=== PATIENT | female | born 1935 | race Caucasian/White ===

== ENCOUNTER 2017-11-24 09:58 | Inpatient (IN) | payer MEDICARE, BC ==
[~2017-11-24] VITALS: Ht 149.9 cm; Wt 51.0 kg
[~2017-11-24 09:58] MED LIST: ALPR.25 PO; ASPI1TAB69 PO; PRED5TAB PO; SIMV20TA PO
[2017-11-24 10:05] VITALS: BP 137/75; PULSE 115; RESP 21; TEMP 98.9; O2SAT 100
[2017-11-24] MEDS ORDERED: SODIUM CHLORIDE 0.9% FLUSH 10 ML FLUSH IVF PRN (10:15)
[2017-11-24] MEDS ORDERED: ASPI-516 CHEW (10:16)
[2017-11-24 10:26] LABS: AUTOMATED NEUTROPHIL # 10.5 TH/MM3 (1.8-7.7); BASOPHIL % 0.3 % (0.0-2.0); HEMATOCRIT 34.2 % (35.0-46.0); HEMOGLOBIN 11.4 GM/DL (11.6-15.3); LYMPH % 4.4 % (9.0-44.0); LYMPHOCYTE # 0.5 TH/MM3 (1.0-4.8); MEAN CELL VOLUME 102.8 FL (80.0-100.0); MEAN CORPUSCULAR HEMOGLOBIN 34.2 PG (27.0-34.0); MEAN CORPUSCULAR HGB CONC 33.2 % (32.0-36.0); MEAN PLATELET VOLUME 7.3 FL (7.0-11.0); MONO % 10.5 % (0.0-8.0); MONOCYTE # 1.3 TH/MM3 (0-0.9); NEUT % 84.8 % (16.0-70.0); PLATELET COUNT 296 TH/MM3 (150-450); RED BLOOD COUNT 3.33 MIL/MM3 (4.00-5.30); RED CELL DISTRIBUTION WIDTH 13.6 % (11.6-17.2); WHITE BLOOD COUNT 12.4 TH/MM3 (4.0-11.0)
[2017-11-24 10:38] LABS: PROTHROMBIN TIME - PATIENT 9.9 SEC (9.8-11.6)
[2017-11-24 10:45] LABS: ALBUMIN 3.8 GM/DL (3.4-5.0); ALT (GPT) 26 U/L (10-53); AST (GOT) 33 U/L (15-37); BICARBONATE 23.6 MEQ/L (21.0-32.0); BLOOD UREA NITROGEN 13 MG/DL (7-18); CALCIUM 8.8 MG/DL (8.5-10.1); CHLORIDE 99 MEQ/L (98-107); CREATININE 0.62 MG/DL (0.50-1.00); GLOMERULAR FILTRATION RATE 92 ML/MIN (>89); GLUCOSE,RANDOM 129 MG/DL (74-106); SODIUM (NA) 133 MEQ/L (136-145)
[2017-11-24 10:46] LABS: BACTERIA, URINE OCC /hpf; BILIRUBIN, URINE NEG (NEG); BLOOD, URINE NEG (NEG); GLUCOSE,URINE NEG (NEG); HYALINE CAST, URINE 1 /lpf (RARE); KETONE, URINE TRACE mg/dL (NEG); MUCUS URINE FEW /lpf (OCC); NITRITE,URINE NEG (NEG); SQUAMOUS EPITHELIAL CELL URINE <1 /hpf (0-5); URINE COLOR YELLOW (YELLW/STRAW); URINE LEUKOCYTE ESTERASE LARGE (NEG)
[2017-11-24 10:47] LABS: ALKALINE PHOSPHATASE 70 U/L (45-117); TOTAL BILIRUBIN ADULT 0.9 MG/DL (0.2-1.0); TOTAL PROTEIN 6.5 GM/DL (6.4-8.2)
[2017-11-24 11:00] VITALS: BP 120/73; PULSE 97
[2017-11-24] MEDS ORDERED: cefTRIAXone INJ 1,000 MG in SODIUM CHLORIDE 0.9% INJ 100 ML IV ONE (11:15)
--- NOTE | 2017-11-24 11:35 | PD ---
HPI Chief Complaint: Hip Injury Time Seen by Provider: 10:06 Travel History International Travel<30 days: No Contact w/Intl Traveler<30days: No Traveled to known affect area: No History of Present Illness HPI 82 y/o female presents after she states she slipped and fell on water when she was trying to load ice cube trays and fell. She states she did not hit her head. She states she did not black out. She states she's been having pain to her left hip area ever since and has not been able to walk around. She is been on the ground since last night at about 9:30 when this occurred. She states she fell asleep intermittently and this morning when it still hurt she elected to call her neighbor who helped her get evaluated. Pain is worse with movement. She denies other modifying factors. Quality pain is sharp. She was given 6 mg of morphine prior to arrival. Follow was from standing. Duration is a little over 12 hours ago. She denies any other concurrent complaints. PFSH Past Medical History Anxiety: Yes High Cholesterol: Yes Diminished Hearing: No Immunizations Current: No Tetanus Vaccination: Never Vaccinated Influenza Vaccination: No ?: Not Menopausal: Yes Past Surgical History Appendectomy: Yes Tonsillectomy: Yes Social History Alcohol Use: Yes (EVERYDAY) Tobacco Use: Yes (OCC) Substance Use: No (DENIES ) Allergies-Medications (Allergen,Severity, Reaction): Coded Allergies: No Known Allergies (Unverified Allergy, Unknown, 11/24/17) Reported Meds & Prescriptions Reported Meds & Active Scripts Active Reported Aspirin 81 Mg Chew 81 Mg CHEW DAILY Xanax (Alprazolam) 0.25 Mg Tab 0.25 Mg PO Q6H PRN Simvastatin 20 Mg Tab 20 Mg PO DAILY Review of Systems Except as stated in HPI: all other systems reviewed are Neg Physical Exam Narrative General: 82 y/o patient in no apparent distress Skin: trauma noted to left hip with swelling Eyes: Pupils equal ENT: no septal hematoma NECK: no pain with palpation and range of motion in midline Cardiovascular: Regular rate and rhythm Respiratory: Normal respiratory effort noted, clear to auscultation bilaterally Abdomen: soft, nontender, nondistended Extremities: Pain with palpation of left hip, no lacerations over, neurovascularly intact, no pain with palpation of other joints Neuro: awake, alert, sensation and motor grossly intact except for what was limited to left leg given probable hip fracture Data Data Last Documented VS Vital Signs Date Time Temp Pulse Resp B/P (MAP) Pulse Ox O2 Delivery O2 Flow Rate FiO2 11/24/17 11:54 100 16 104/63 (77) 100 Nasal Cannula 2.00 11/24/17 10:05 98.9 Orders Orders Electrocardiogram (11/24/17 10:10) Complete Blood Count With Diff (11/24/17 10:10) Comprehensive Metabolic Panel (11/24/17 10:10) Prothrombin Time / Inr (Pt) (11/24/17 10:10) Act Partial Throm Time (Ptt) (11/24/17 10:10) Urinalysis - C+S If Indicated (11/24/17 10:10) Type And Screen (11/24/17 10:10) Chest, Single Ap (11/24/17 10:10) Femur (Ap & Lat/2vws) (11/24/17 10:10) Pelvis, Ap Only (Routine) (11/24/17 10:10) Iv Access Insert/Monitor (11/24/17 10:10) Urinary Catheter Insert/Apply (11/24/17 10:10) Oximetry (11/24/17 10:10) Ecg Monitoring (11/24/17 10:10) Sodium Chloride 0.9% Flush (Ns Flush) (11/24/17 10:15) Diet Npo (11/24/17 Lunch) Urine Culture (11/24/17 10:25) Blood Culture (11/24/17 11:05) Ceftriaxone Inj (Rocephin Inj) (11/24/17 11:15) Creatine Kinase (Cpk) (11/24/17 11:43) Ct Brain W/O Iv Contrast(Rout) (11/24/17 ) Admit To Inpatient (11/24/17 ) Vital Signs (Adult) Q4H (11/24/17 11:54) Activity Bed Rest With Brp (11/24/17 11:54) Sodium Chloride 0.9% Flush (Ns Flush) (11/24/17 12:00) Ondansetron Inj (Zofran Inj) (11/24/17 12:00) Comprehensive Metabolic Panel (11/25/17 06:00) Complete Blood Count With Diff (11/25/17 06:00) Scd Bilateral/Knee High JOE.BID (11/24/17 11:54) Acetaminophen (Tylenol) (11/24/17 12:00) Acetamin-Hydrocod 325-5 Mg (Kramer 5-325 (11/24/17 12:00) Acetamin-Hydrocod 325-7.5 Mg (Kramer 7.5 (11/24/17 12:00) Morphine Inj (Morphine Inj) (11/24/17 12:00) Naloxone Inj (Narcan Inj) (11/24/17 12:00) Docusate Sodium-Senna (Audrey-Colace) (11/24/17 21:00) Magnesium Hydroxide Liq (Milk Of Magnesi (11/24/17 12:00) Sennosides (Senokot) (11/24/17 12:00) Bisacodyl Supp (Dulcolax Supp) (11/24/17 12:00) Lactulose Liq (Lactulose Liq) (11/24/17 12:00) Inpatient Certification (11/24/17 ) Admit Order (Ed Use Only) (11/24/17 12:22) Labs Laboratory Tests Test 11/24/17 10:15 11/24/17 10:25 White Blood Count 12.4 TH/MM3 Red Blood Count 3.33 MIL/MM3 Hemoglobin 11.4 GM/DL Hematocrit 34.2 % Mean Corpuscular Volume 102.8 FL Mean Corpuscular Hemoglobin 34.2 PG Mean Corpuscular Hemoglobin Concent 33.2 % Red Cell Distribution Width 13.6 % Platelet Count 296 TH/MM3 Mean Platelet Volume 7.3 FL Neutrophils (%) (Auto) 84.8 % Lymphocytes (%) (Auto) 4.4 % Monocytes (%) (Auto) 10.5 % Eosinophils (%) (Auto) 0.0 % Basophils (%) (Auto) 0.3 % Neutrophils # (Auto) 10.5 TH/MM3 Lymphocytes # (Auto) 0.5 TH/MM3 Monocytes # (Auto) 1.3 TH/MM3 Eosinophils # (Auto) 0.0 TH/MM3 Basophils # (Auto) 0.0 TH/MM3 CBC Comment DIFF FINAL Differential Comment Prothrombin Time 9.9 SEC Prothromb Time International Ratio 1.0 RATIO Activated Partial Thromboplast Time 22.0 SEC Blood Urea Nitrogen 13 MG/DL Creatinine 0.62 MG/DL Random Glucose 129 MG/DL Total Protein 6.5 GM/DL Albumin 3.8 GM/DL Calcium Level 8.8 MG/DL Alkaline Phosphatase 70 U/L Aspartate Amino Transf (AST/SGOT) 33 U/L Alanine Aminotransferase (ALT/SGPT) 26 U/L Total Bilirubin 0.9 MG/DL Sodium Level 133 MEQ/L Potassium Level 4.3 MEQ/L Chloride Level 99 MEQ/L Carbon Dioxide Level 23.6 MEQ/L Anion Gap 10 MEQ/L Estimat Glomerular Filtration Rate 92 ML/MIN Urine Color YELLOW Urine Turbidity HAZY Urine pH 6.0 Urine Specific [place] 1.018 Urine Protein 30 mg/dL Urine Glucose (UA) NEG mg/dL Urine Ketones TRACE mg/dL Urine Occult Blood NEG Urine Nitrite NEG Urine Bilirubin NEG Urine Urobilinogen LESS THAN 2.0 MG/DL Urine Leukocyte Esterase LARGE Urine RBC LESS THAN 1 /hpf Urine WBC 6 /hpf Urine Squamous Epithelial Cells <1 /hpf Urine Bacteria OCC /hpf Urine Hyaline Casts 1 /lpf Urine Mucus FEW /lpf Microscopic Urinalysis Comment CATH-CULTURE IND MDM Medical Decision Making Medical Screen Exam Complete: Yes Emergency Medical Condition: Yes Medical Record Reviewed: Yes (past history confirmed) Interpretation(s) CBC & BMP Diagram 11/24/17 10:15 Total Protein 6.5, Albumin 3.8, Calcium Level 8.8, Alkaline Phosphatase 70, Aspartate Amino Transf (AST/SGOT) 33, Alanine Aminotransferase (ALT/SGPT) 26, Total Bilirubin 0.9 Last 24 hours Impressions Pelvis X-Ray 11/24/17 1010 Signed Impressions: Service Date/Time: October 10:51 - CONCLUSION: There is a displaced oblique fracture through the trochanteric region of the proximal left femur. Neo Goldsmith MD Femur X-Ray 11/24/17 1010 Signed Impressions: Service Date/Time: October 10:54 - CONCLUSION: Displaced fracture through the trochanteric region of the left femur. Neo Goldsmith MD Chest X-Ray 11/24/17 1010 Signed Impressions: Service Date/Time: October 11:15 - CONCLUSION: No acute disease. Neo Goldsmith MD Head CT 11/24/17 0000 Signed Impressions: Service Date/Time: October 12:05 - CONCLUSION: 1. No acute intracranial hemorrhage. 2. Bilateral cortical atrophy. Neo Goldsmith MD Differential Diagnosis Fracture, dislocation, strain Narrative Course Will check blood work, trauma imaging and monitor. ua with uti, given rocephin, x-ray reviewed and will discuss with orthopedic physician patient updated, agrees to admit and ortho consult Physician Communication Physician Communication dr [email or web address] agrees to admit dr cruz states to place consult under dr miles Diagnosis Primary Impression: Hip fracture Qualified Codes: S72.002A - Fracture of unspecified part of neck of left femur , initial encounter for closed fracture Additional Impression: UTI (urinary tract infection) Admitting Information Admitting Physician Requests: Admit Renea Guzman MD Nov 24, 2017 11:35
[2017-11-24 11:54] VITALS: BP 104/63; PULSE 100; RESP 16; O2SAT 100
--- NOTE | 2017-11-24 11:55 | RADRPT ---
EXAM DATE/TIME: 11/24/2017 10:51 [facility] COMPARISON: No previous studies available for comparison. INDICATIONS : Left hip pain after falling last night. MEDICAL HISTORY : Smoker. SURGICAL HISTORY : None. ENCOUNTER: Initial ACUITY: 2 days PAIN SCORE: 10/10 LOCATION: Left hip into the groin. FINDINGS: There is a displaced fracture through the trochanteric region of the proximal left femur. The femoral head remains within the acetabulum. The bony structures of the pelvis are grossly intact. There is a lignment of the right hip joint. CONCLUSION: There is a displaced oblique fracture through the trochanteric region of the proximal left femur. Neo Goldsmith MD on November 24, 2017 at 11:53 Board Certified Radiologist. This report was verified electronically.
--- NOTE | 2017-11-24 11:55 | RADRPT ---
EXAM DATE/TIME: 11/24/2017 11:15 [facility] COMPARISON: No previous studies available for comparison. INDICATIONS : Evaluate for pneumonia, pneumothorax, or communicable disease. Pre-op for left femur fracture. MEDICAL HISTORY : Smoker. SURGICAL HISTORY : None. ENCOUNTER: Initial ACUITY: 1 day PAIN SCORE: 0/10 LOCATION: Bilateral chest FINDINGS: A single view of the chest demonstrates the lungs to be symmetrically aerated without evidence of mas s, infiltrate or effusion. The cardiomediastinal contours are unremarkable. Osseous structures are intact. There is scoliosis with curvature of the thoracic spine to the right. There is diffuse degene rative changes. CONCLUSION: No acute disease. Neo Goldsmith MD on November 24, 2017 at 11:53 Board Certified Radiologist. This report was verified electronically.
--- NOTE | 2017-11-24 11:56 | RADRPT ---
EXAM DATE/TIME: 11/24/2017 10:54 [facility] COMPARISON: No previous studies available for comparison. INDICATIONS : Left hip pain after falling last night. MEDICAL HISTORY : Smoker. SURGICAL HISTORY : None. ENCOUNTER: Initial ACUITY: 2 days PAIN SCORE: 10/10 LOCATION: Left hip into groin. FINDINGS: There is a displaced fracture through the trochanteric region of the left femur. The femoral head rem ains within the acetabulum. CONCLUSION: Displaced fracture through the trochanteric region of the left femur. Neo Goldsmith MD on November 24, 2017 at 11:54 Board Certified Radiologist. This report was verified electronically.
[2017-11-24] MEDS ORDERED: PHENYLEPH/NS 1000 MCG/10 ML SYR IV ONE (12:00)
[2017-11-24] MEDS ORDERED: NALOXONE HCL 0.4 MG/ML AMP IV PUSH PRN (12:00)
[2017-11-24] MEDS ORDERED: ACETAMINOPHEN 325 MG TAB PO PRN (12:00)
[2017-11-24] MEDS ORDERED: ONDANSETRON HCL 4 MG/2 ML VIAL IV ONE (12:00)
[2017-11-24] MEDS ORDERED: LIDOCAINE HCL 1% PF 5 ML SYRINGE OTHER ONE (12:00)
[2017-11-24] MEDS ORDERED: SODIUM CHLORIDE 0.9% FLUSH 10 ML FLUSH IV FLUSH PRN ×2 (12:00→20:15)
[2017-11-24] MEDS ORDERED: LACTATED RINGER'S 1000 ML INJ 1,000 ML IV ONE (12:00)
[2017-11-24] MEDS ORDERED: ONDANSETRON HCL 4 MG/2 ML VIAL IVP PRN (12:00)
[2017-11-24] MEDS ORDERED: PROPOFOL 200 MG/20 ML AMP IV ONE (12:00)
[2017-11-24] MEDS ORDERED: ACETAMINOPHEN/HYDROcodone 325 MG/7.5 MG TAB PO PRN (12:00)
[2017-11-24] MEDS ORDERED: DEXAMETHASONE SOD PHOS 4 MG/ML VIAL IV ONE (12:00)
[2017-11-24] MEDS ORDERED: ACETAMINOPHEN/HYDROcodone 325 MG/5 MG TAB PO PRN (12:00)
[2017-11-24] MEDS ORDERED: MORPHINE SULFATE 2 MG/ML INJ IV PUSH PRN (12:00)
[2017-11-24] MEDS ORDERED: MAGNESIUM HYDROXIDE SUSP 30 ML CUP PO PRN ×2 (12:00→20:15)
[2017-11-24] MEDS ORDERED: SENNOSIDES 8.6 MG TAB PO PRN ×2 (12:00→20:15)
[2017-11-24] MEDS ORDERED: BISACODYL 10 MG SUPP RECTAL PRN ×2 (12:00→20:15)
[2017-11-24] MEDS ORDERED: LACTULOSE SYRUP 20 GM/30 ML CUP PO PRN ×2 (12:00→20:15)
--- NOTE | 2017-11-24 12:20 | RADRPT ---
EXAM DATE/TIME: 11/24/2017 12:05 [facility] COMPARISON: No previous studies available for comparison. INDICATIONS : Fall last night RADIATION DOSE: 26.35 CTDIvol (mGy) MEDICAL HISTORY : Hypertension. SURGICAL HISTORY : Appendectomy. ENCOUNTER: Initial ACUITY: 1 day PAIN SCALE: 2/10 LOCATION: cranial TECHNIQUE: Multiple contiguous axial images were obtained of the head. Using automated exposure control and adj ustment of the mA and/or kV according to patient size, radiation dose was kept as low as reasonably a chievable to obtain optimal diagnostic quality images. DICOM format image data is available electro nically for review and comparison. FINDINGS: CEREBRUM: The ventricles are normal for age. There is bilateral cortical atrophy. No evidence of midline shift , mass lesion, hemorrhage or acute infarction. No extra-axial fluid collections are seen. POSTERIOR FOSSA: The cerebellum and brainstem are intact. The 4th ventricle is midline. The cerebellopontine angle i s unremarkable. EXTRACRANIAL: The visualized portion of the orbits is intact. SKULL: The calvaria is intact. No evidence of skull fracture. CONCLUSION: 1. No acute intracranial hemorrhage. 2. Bilateral cortical atrophy. Neo Goldsmith MD on November 24, 2017 at 12:17 Board Certified Radiologist. This report was verified electronically.
--- NOTE | 2017-11-24 13:28 | HHI.HP ---
[facility] Service [facility] Primary Care Physician Cesar Orozco MD Admission Diagnosis hip fracture Diagnoses: Chief Complaint: Fall resulting in a hip fracture Travel History International Travel<30 Days: No Contact w/Intl Traveler <30 Da: No Traveled to Known Affected Are: No History of Present Illness This is a 82-year-old female past medical history of right macular degeneration , left vision loss, and hyperlipidemia who presented with a fall. 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 She stated that she spilled the water and slipped on it and flew in landed on the ground. She is unsure how she landed. She denies hitting her head and losing any consciousness. Patient stated that she remain on the floor and then had a push herself to the den where she slept up. She later realized that she would not be able to get up so she called her neighbor who called EMS. Patient stated that she does have a life alert but has never used it and stated that she is not planning on using it. She denies any chest pain, palpitation, SOB, lightheadedness or dizziness. She stated that she has never had these problems. Patient stated that she is very independent and would like to go home after surgery. Patient complains of left hip and thigh pain. Denied any loss of sensation. all other reviewed of system reviewed and negative. Past Family Social History Past Medical History Hyperlipidemia right macular degeneration Left vision loss Past Surgical History Appendectomy Reported Medications Aspirin 81 Mg Chew 81 Mg CHEW DAILY Xanax (Alprazolam) 0.25 Mg Tab 0.25 Mg PO Q6H PRN Simvastatin 20 Mg Tab 20 Mg PO DAILY Allergies: Coded Allergies: No Known Allergies (Unverified Allergy, Unknown, 11/24/17) Active Ordered Medications Current Medications Sodium Chloride (NS Flush) 2 ml UNSCH PRN IVF FLUSH AFTER USING IV ACCESS Last administered on 11/24/17t 11:31; Start 11/24/17 at 10:15 Ceftriaxone Sodium 1000 mg/ Sodium Chloride 100 ml @ 200 mls/hr ONCE ONCE IV Last administered on 11/24/17t 11:31; Start 11/24/17 at 11:15; Stop 11/24/17 at 11:44; Status DC Sodium Chloride (NS Flush) 2 ml UNSCH PRN IV FLUSH FLUSH AFTER USING IV ACCESS ; Start 11/24/17 at 12:00 Ondansetron HCl (Zofran Inj) 4 mg Q6H PRN IVP NAUSEA OR VOMITING; Start at 12:00 Acetaminophen (Tylenol) 650 mg Q6H PRN PO PAIN SCALE 1 TO 2; Start 11/24/17 at 12:00 Acetaminophen/ Hydrocodone Bitart ([place] 5-325 Mg) 1 tab Q4H PRN PO PAIN SCALE 3 TO 5; Start 11/24/17 at 12:00 Acetaminophen/ Hydrocodone Bitart ([place] 7.5-325 Mg) 1 tab Q4H PRN PO PAIN SCALE 6 TO 10; Start 11/24/17 at 12:00 Morphine Sulfate (Morphine Inj) 2 mg Q3H PRN IV PUSH BREAKTHROUGH PAIN; Start 11/24/17 at 12:00 Naloxone HCl (Narcan Inj) 0.4 mg UNSCH PRN IV PUSH SEE LABEL COMMENTS; Start 11/24/17 at 12:00 Senna/Docusate Sodium (Audrey-Colace) 1 tab BID PO ; Start 11/24/17 at 21:00 Magnesium Hydroxide (Milk Of Magnesia Liq) 30 ml Q12H PRN PO Mild constipation ; Start 11/24/17 at 12:00 Sennosides (Senokot) 17.2 mg Q12H PRN PO Moderate constipation; Start at 12:00 Bisacodyl (Dulcolax Supp) 10 mg DAILY PRN RECTAL SEVERE CONSITIPATION; Start 11/24/17 at 12:00 Lactulose (Lactulose Liq) 30 ml DAILY PRN PO SEVERE CONSITIPATION; Start 11/24 at 12:00 Family History Reviewed past family history and denied any. Social History Patient is independent and lives by herself. She smokes tobacco occasionally about one cigarette per week. Drinks 2-3 drinks of vodka a day. She denied getting any withdrawal symptoms from not drinking any vodka. Denies illicit drug use. Physical Exam Vital Signs Vital Signs Date Time Temp Pulse Resp B/P (MAP) Pulse Ox O2 Delivery O2 Flow Rate FiO2 11/24/17 11:54 100 16 104/63 (77) 100 Nasal Cannula 2.00 11/24/17 11:00 97 120/73 (89) Room Air 11/24/17 10:05 98.9 115 21 137/75 (95) 100 11/24/17 10:05 Room Air Physical Exam GENERAL: This is a well-nourished, well-developed patient, in no apparent distress. SKIN: No rashes, ecchymoses or lesions. Cool and dry. HEAD: Atraumatic. Normocephalic. No temporal or scalp tenderness. EYES: Pupils equal round and reactive. Extraocular motions intact. No scleral icterus. No injection or drainage. ENT: Nose without bleeding, purulent drainage or septal hematoma. Throat without erythema, tonsillar hypertrophy or exudate. Uvula midline. Airway patent. NECK: Trachea midline. No JVD or lymphadenopathy. Supple, nontender, no meningeal signs. CARDIOVASCULAR: Regular rate and rhythm without murmurs, gallops, or rubs. RESPIRATORY: Clear to auscultation. Breath sounds equal bilaterally. No wheezes , rales, or rhonchi. GASTROINTESTINAL: Abdomen soft, non-tender, nondistended. No hepato-splenomegaly , or palpable masses. No guarding. MUSCULOSKELETAL: Extremities without clubbing, cyanosis, or edema. Negative Homans sign bilaterally. +TTP of the left tight. unable to do ROM of left leg due to pain. NEUROLOGICAL: Awake and alert. Cranial nerves II through XII intact. Motor and sensory grossly within normal limits. Five out of 5 muscle strength in all muscle groups. Normal speech. Laboratory Laboratory Tests Test 11/24/17 10:15 11/24/17 10:25 White Blood Count 12.4 Red Blood Count 3.33 Hemoglobin 11.4 Hematocrit 34.2 Mean Corpuscular Volume 102.8 Mean Corpuscular Hemoglobin 34.2 Mean Corpuscular Hemoglobin Concent 33.2 Red Cell Distribution Width 13.6 Platelet Count 296 Mean Platelet Volume 7.3 Neutrophils (%) (Auto) 84.8 Lymphocytes (%) (Auto) 4.4 Monocytes (%) (Auto) 10.5 Eosinophils (%) (Auto) 0.0 Basophils (%) (Auto) 0.3 Neutrophils # (Auto) 10.5 Lymphocytes # (Auto) 0.5 Monocytes # (Auto) 1.3 Eosinophils # (Auto) 0.0 Basophils # (Auto) 0.0 CBC Comment DIFF FINAL Differential Comment Prothrombin Time 9.9 Prothromb Time International Ratio 1.0 Activated Partial Thromboplast Time 22.0 Blood Urea Nitrogen 13 Creatinine 0.62 Random Glucose 129 Total Protein 6.5 Albumin 3.8 Calcium Level 8.8 Alkaline Phosphatase 70 Aspartate Amino Transf (AST/SGOT) 33 Alanine Aminotransferase (ALT/SGPT) 26 Total Bilirubin 0.9 Sodium Level 133 Potassium Level 4.3 Chloride Level 99 Carbon Dioxide Level 23.6 Anion Gap 10 Estimat Glomerular Filtration Rate 92 Urine Color YELLOW Urine Turbidity HAZY Urine pH 6.0 Urine Specific [place] 1.018 Urine Protein 30 Urine Glucose (UA) NEG Urine Ketones TRACE Urine Occult Blood NEG Urine Nitrite NEG Urine Bilirubin NEG Urine Urobilinogen LESS THAN 2.0 Urine Leukocyte Esterase LARGE Urine RBC LESS THAN 1 Urine WBC 6 Urine Squamous Epithelial Cells <1 Urine Bacteria OCC Urine Hyaline Casts 1 Urine Mucus FEW Microscopic Urinalysis Comment CATH-CULTURE IND Date/Time Source Procedure Growth Status 11/24/17 11:30 Blood Peripheral Aerobic Blood Culture Pending Received 11/24/17 11:30 Blood Peripheral Anaerobic Blood Culture Pending Received 11/24/17 10:25 Urine Catheterized Urine Urine Culture Pending Received Result Diagram: 11/24/17 1015 11/24/17 1015 Imaging Last Impressions Pelvis X-Ray 11/24/17 1010 Signed Impressions: Service Date/Time: October 10:51 - CONCLUSION: There is a displaced oblique fracture through the trochanteric region of the proximal left femur. Neo Goldsmith MD Femur X-Ray 11/24/17 1010 Signed Impressions: Service Date/Time: October 10:54 - CONCLUSION: Displaced fracture through the trochanteric region of the left femur. Neo Goldsmith MD Chest X-Ray 11/24/17 1010 Signed Impressions: Service Date/Time: October 11:15 - CONCLUSION: No acute disease. Neo Goldsmith MD Head CT 11/24/17 0000 Signed Impressions: Service Date/Time: Thursday, November 24, 2017 12:05 - CONCLUSION: 1. No acute intracranial hemorrhage. 2. Bilateral cortical atrophy. MD Stephanie Rivas VTE Risk Assessment Caprini VTE Risk Assessment: Mod/High Risk (score >= 2) Caprini Risk Assessment Model Point Value = 1 Point Value = 2 Point Value = 3 Point Value = 5 Age 41-60 Minor surgery BMI > 25 kg/m2 Swollen legs Varicose veins or History of unexplained or recurrent spontaneous Oral contraceptives or hormone replacement Sepsis (< 1 month) Serious lung disease, including pneumonia (< 1 month) Abnormal pulmonary function Acute myocardial infarction Congestive heart failure (< 1 month) History of inflammatory bowel disease Medical patient at bed rest Age 61-74 Arthroscopic surgery Major open surgery (> 45 min) Laparoscopic surgery (> 45 min) Malignancy Confined to bed (> 72 hours) Immobilizing plaster cast Central venous access Age >= 75 History of VTE Family history of VTE Factor V Leiden Prothrombin [id number] Lupus anticoagulant Anticardiolipin antibodies Elevated serum homocysteine Heparin-induced thrombocytopenia Other congenital or acquired thrombophilia Stroke (< 1 month) Elective arthroplasty Hip, pelvis, or leg fracture Acute spinal cord injury (< 1 month) Prophylaxis Regimen Total Risk Factor Score Risk Level Prophylaxis Regimen 0-1 Low Early ambulation 2 Moderate Order ONE of the following: *Sequential Compression Device (SCD) *Heparin 5000 units SQ BID 3-4 Higher Order ONE of the following medications: *Heparin 5000 units SQ TID *Enoxaparin/Lovenox 40 mg SQ daily (WT < 150 kg, CrCl > 30 mL/min) *Enoxaparin/Lovenox 30 mg SQ daily (WT < 150 kg, CrCl > 10-29 mL/min) *Enoxaparin/Lovenox 30 mg SQ BID (WT < 150 kg, CrCl > 30 mL/min) AND/OR *Sequential Compression Device (SCD) 5 or more Highest Order ONE of the following medications: *Heparin 5000 units SQ TID (Preferred with Epidurals) *Enoxaparin/Lovenox 40 mg SQ daily (WT < 150 kg, CrCl > 30 mL/min) *Enoxaparin/Lovenox 30 mg SQ daily (WT < 150 kg, CrCl > 10-29 mL/min) *Enoxaparin/Lovenox 30 mg SQ BID (WT < 150 kg, CrCl > 30 mL/min) AND *Sequential Compression Device (SCD) Assessment and Plan Assessment and Plan This is an 82-year-old female who presented with a mechanical fall after slipping over water Displaced fracture through trochanter region of the left femur -Orthopedic consulted most likely patient will need surgical intervention. -Will start IV fluids and keep nothing by mouth pending recommendations from orthopedic surgeon. -Will also manage pain. Hyperlipidemia -Restart home medication. DVT prophylaxis -Will hold off on chemoprophylaxis pending possible surgery today. Code Status full Discussed Condition With Patient Physician Certification 2 Midnight Certification Type: Admission for Inpatient Services Order for Inpatient Services The services are ordered in accordance with Medicare regulations or non- Medicare payer requirements, as applicable. In the case of services not specified as inpatient-only, they are appropriately provided as inpatient services in accordance with the 2-midnight benchmark. Estimated LOS (days): 3 3 days is the estimated time the patient will need to remain in the hospital, assuming treatment plan goals are met and no additional complications. Post-Hospital Plan: SNF Shwetha Cheatham MD Nov 24, 2017 13:28
[2017-11-24 16:00] VITALS: BP 106/66; PULSE 109; RESP 16; TEMP 100.9; O2SAT 98
--- NOTE | 2017-11-24 17:21 | PD.CONS ---
cc: Carlos Weinstein Jr., MD HPI Service Orthopedic Surgeons Consult Requested By Primary Care Physician Cesar Orozco MD Admission Diagnosis hip fracture Diagnoses: Chief Complaint: left intertroch hip fracture History of Present Illness 82-year-old female past medical history of right macular degeneration, left vision loss, and hyperlipidemia who presented with a fall. s/p fall at home from slipping on water that was on the floor. c/o left hip pain and inability bear weight. X-ray taken the emergency department reveal displaced right IT fem fracture. Denies any head injuries. Denies loss of consciousness. Currently is alert, pain localized at left hip, patient's is 6 out of 10, exacerbated by any range of motion, WB, relieved at rest and with IV pain medicine, pain is sharp nonradiating, dull, not associated with any paresthesia and numbness to the extremity. She denies any chest pain, palpitation, SOB, lightheadedness or dizziness. She stated that she has never had these problems. Patient stated that she is very independent and would like to go home after surgery. ROS - General Review of Systems PFSH Past Family Social History Past Medical History Hyperlipidemia right macular degeneration Left vision loss Past Surgical History Appendectomy Reported Medications Aspirin 81 Mg Chew 81 Mg CHEW DAILY Xanax (Alprazolam) 0.25 Mg Tab 0.25 Mg PO Q6H PRN Simvastatin 20 Mg Tab 20 Mg PO DAILY Allergies: Coded Allergies: No Known Allergies (Unverified Allergy, Unknown, 11/24/17) Active Ordered Medications Current Medications Sodium Chloride (NS Flush) 2 ml UNSCH PRN IVF FLUSH AFTER USING IV ACCESS Last administered on 11/24/17 11:31; Start 11/24/17 at 10:15 Ceftriaxone Sodium 1000 mg/ Sodium Chloride 100 ml @ 200 mls/hr ONCE ONCE IV Last administered on 11/24/17 11:31; Start 11/24/17 at 11:15; Stop 11/24/17 at 11:44; Status DC Sodium Chloride (NS Flush) 2 ml UNSCH PRN IV FLUSH FLUSH AFTER USING IV ACCESS ; Start 11/24/17 at 12:00 Ondansetron HCl (Zofran Inj) 4 mg Q6H PRN IVP NAUSEA OR VOMITING; Start at 12:00 Acetaminophen (Tylenol) 650 mg Q6H PRN PO PAIN SCALE 1 TO 2; Start 11/24/17 at 12:00 Acetaminophen/ Hydrocodone Bitart ([place] 5-325 Mg) 1 tab Q4H PRN PO PAIN SCALE 3 TO 5; Start 11/24/17 at 12:00 Acetaminophen/ Hydrocodone Bitart ([place] 7.5-325 Mg) 1 tab Q4H PRN PO PAIN SCALE 6 TO 10; Start 11/24/17 at 12:00 Morphine Sulfate (Morphine Inj) 2 mg Q3H PRN IV PUSH BREAKTHROUGH PAIN; Start 11/24/17 at 12:00 Naloxone HCl (Narcan Inj) 0.4 mg UNSCH PRN IV PUSH SEE LABEL COMMENTS; Start 11/24/17 at 12:00 Senna/Docusate Sodium (Audrey-Colace) 1 tab BID PO ; Start 11/24/17 at 21:00 Magnesium Hydroxide (Milk Of Magnesia Liq) 30 ml Q12H PRN PO Mild constipation ; Start 11/24/17 at 12:00 Sennosides (Senokot) 17.2 mg Q12H PRN PO Moderate constipation; Start at 12:00 Bisacodyl (Dulcolax Supp) 10 mg DAILY PRN RECTAL SEVERE CONSITIPATION; Start 11/24/17 at 12:00 Lactulose (Lactulose Liq) 30 ml DAILY PRN PO SEVERE CONSITIPATION; Start 11/24 at 12:00 Family History Reviewed past family history and denied any. Social History Patient is independent and lives by herself. She smokes tobacco occasionally about one cigarette per week. Drinks 2-3 drinks of vodka a day. She denied getting any withdrawal symptoms from not drinking any vodka. Denies illicit drug use. Past Family Social History Past Medical History Hyperlipidemia right macular degeneration Left vision loss Past Surgical History Appendectomy Allergies: Coded Allergies: No Known Allergies (Unverified Allergy, Unknown, 11/24/17) Active Ordered Medications Current Medications Medications (Trade) Dose Ordered Sig/Mattie Route Start Time Stop Time Status Last Admin (NS Flush) 2 ml UNSCH PRN IVF 11/24/17 10:15 11/24/17 11:31 (NS Flush) 2 ml UNSCH PRN IV FLUSH 11/24/17 12:00 (Zofran Inj) 4 mg Q6H PRN IVP 11/24/17 12:00 (Tylenol) 650 mg Q6H PRN PO 11/24/17 12:00 ([place] 5-325 Mg) 1 tab Q4H PRN PO 11/24/17 12:00 ([place] 7.5-325 Mg) 1 tab Q4H PRN PO 11/24/17 12:00 (Morphine Inj) 2 mg Q3H PRN IV PUSH 11/24/17 12:00 (Narcan Inj) 0.4 mg UNSCH PRN IV PUSH 11/24/17 12:00 (Audrey-Colace) 1 tab BID PO 11/24/17 21:00 (Milk Of Magnesia Liq) 30 ml Q12H PRN PO 11/24/17 12:00 (Senokot) 17.2 mg Q12H PRN PO 11/24/17 12:00 (Dulcolax Supp) 10 mg DAILY PRN RECTAL 11/24/17 12:00 (Lactulose Liq) 30 ml DAILY PRN PO 11/24/17 12:00 Sodium Chloride 1,000 ml @ 84 mls/hr [id number] IV 11/24/17 13:30 Reported Meds & Active Scripts Active Reported Aspirin 81 Mg Chew 81 Mg CHEW DAILY Xanax (Alprazolam) 0.25 Mg Tab 0.25 Mg PO Q6H PRN Simvastatin 20 Mg Tab 20 Mg PO DAILY Family History Reviewed past family history and denied any. Social History Patient is independent and lives by herself. She smokes tobacco occasionally about one cigarette per week. Drinks 2-3 drinks of vodka a day. She denied getting any withdrawal symptoms from not drinking any vodka. Denies illicit drug use. Physical Exam Vital Signs Vital Signs Date Time Temp Pulse Resp B/P (MAP) Pulse Ox O2 Delivery O2 Flow Rate FiO2 11/24/17 11:54 100 16 104/63 (77) 100 Nasal Cannula 2.00 11/24/17 11:00 97 120/73 (89) Room Air 11/24/17 10:05 98.9 115 21 137/75 (95) 100 11/24/17 10:05 Room Air Physical Exam Alert awake and oriented x 3. No acute distress. Head: NC/AT Neck: No pain with any range of motion and neck. Trachea is midline. No tenderness to palpation along posterior cervical elements. Pulmonary: Normal respiratory effort. Bilateral upper extremity: No deformities Intact sensation distally in median, ulnar, and radial nerve. Intact motor in anterior interosseous, posterior interosseous, and ulnar nerve. 2+ radial artery pulses. Good cap refill. RIGHT lower extremity: No deformity, grossly Neurovascularly intact, +EHL/FHL. + PT/DP pulses. Supple compartments. Negative Homans sign. LEFT lower extremity: Shortened and externally rotated. Grossly neurovascularly intact. Grossly Neurovascularly intact, +EHL/FHL. + PT/DP pulses. Supple compartments. Negative Homans sign. Laboratory Laboratory Tests Test 11/24/17 10:15 11/24/17 10:25 White Blood Count 12.4 Red Blood Count 3.33 Hemoglobin 11.4 Hematocrit 34.2 Mean Corpuscular Volume 102.8 Mean Corpuscular Hemoglobin 34.2 Mean Corpuscular Hemoglobin Concent 33.2 Red Cell Distribution Width 13.6 Platelet Count 296 Mean Platelet Volume 7.3 Neutrophils (%) (Auto) 84.8 Lymphocytes (%) (Auto) 4.4 Monocytes (%) (Auto) 10.5 Eosinophils (%) (Auto) 0.0 Basophils (%) (Auto) 0.3 Neutrophils # (Auto) 10.5 Lymphocytes # (Auto) 0.5 Monocytes # (Auto) 1.3 Eosinophils # (Auto) 0.0 Basophils # (Auto) 0.0 CBC Comment DIFF FINAL Differential Comment Prothrombin Time 9.9 Prothromb Time International Ratio 1.0 Activated Partial Thromboplast Time 22.0 Blood Urea Nitrogen 13 Creatinine 0.62 Random Glucose 129 Total Protein 6.5 Albumin 3.8 Calcium Level 8.8 Alkaline Phosphatase 70 Aspartate Amino Transf (AST/SGOT) 33 Alanine Aminotransferase (ALT/SGPT) 26 Total Bilirubin 0.9 Sodium Level 133 Potassium Level 4.3 Chloride Level 99 Carbon Dioxide Level 23.6 Anion Gap 10 Estimat Glomerular Filtration Rate 92 Urine Color YELLOW Urine Turbidity HAZY Urine pH 6.0 Urine Specific [place] 1.018 Urine Protein 30 Urine Glucose (UA) NEG Urine Ketones TRACE Urine Occult Blood NEG Urine Nitrite NEG Urine Bilirubin NEG Urine Urobilinogen LESS THAN 2.0 Urine Leukocyte Esterase LARGE Urine RBC LESS THAN 1 Urine WBC 6 Urine Squamous Epithelial Cells <1 Urine Bacteria OCC Urine Hyaline Casts 1 Urine Mucus FEW Microscopic Urinalysis Comment CATH-CULTURE IND Date/Time Source Procedure Growth Status 11/24/17 11:30 Blood Peripheral Aerobic Blood Culture Pending Received 11/24/17 11:30 Blood Peripheral Anaerobic Blood Culture Pending Received 11/24/17 10:25 Urine Catheterized Urine Urine Culture Pending Received Result Diagram: 11/24/17 1015 11/24/17 1015 Imaging Last 72 hours Impressions Pelvis X-Ray 11/24/17 1010 Signed Impressions: Service Date/Time: October 10:51 - CONCLUSION: There is a displaced oblique fracture through the trochanteric region of the proximal left femur. Neo Goldsmith MD Femur X-Ray 11/24/17 1010 Signed Impressions: Service Date/Time: October 10:54 - CONCLUSION: Displaced fracture through the trochanteric region of the left femur. Neo Goldsmith MD Chest X-Ray 11/24/17 1010 Signed Impressions: Service Date/Time: October 11:15 - CONCLUSION: No acute disease. Neo Goldsmith MD Head CT 11/24/17 0000 Signed Impressions: Service Date/Time: October 12:05 - CONCLUSION: 1. No acute intracranial hemorrhage. 2. Bilateral cortical atrophy. Neo Goldsmith MD Assessment & Plan Assessment and Plan 82-year-old female past medical history of right macular degeneration, left vision loss, and hyperlipidemia who presented with a fall. s/p fall at home from slipping on water that was on the floor. c/o left hip pain and inability bear weight. X-ray taken the emergency department reveal displaced right IT fem fracture. Denies any head injuries. She is grossly neurovascularly intact. I recommend left hip intramedullary neha fixation. I discussed my treatment plans with the patient, as well as risks, benefits and alternatives of surgical Intervention versus nonoperative treatment. In this case, the risks of operative intervention involves bleeding, infection, nonunion, malunion, risks of damage to neurovascular structures, the risk of needing further surgery, posttraumatic arthritis and the risks involved with complication from anesthesia. We will proceed with the above procedure. The patient accepts these risks; understands and agrees with my recommendations. I also discussed my proposed postoperative care and follow-up plan. All questions were answered. Plan for OR []. Nothing by mouth []. Thanks for the consult, thanks for allowing me to participate in this patient's medical care. Carlos Weinstein Jr., MD Nov 24, 2017 17:21
[2017-11-24] MEDS: SODIUM CHLOR 0.9% 1000 ML INJ 1,000 ML IV SCH ×2 (17:26→22:30)
[2017-11-24] MEDS ORDERED: ACETAMINOPHEN 1000 MG/100 ML 100 ML IV ONE (18:56)
[2017-11-24] MEDS ORDERED: ceFAZolin INJ 1,000 MG VIAL ONE (19:41)
[2017-11-24] MEDS ORDERED: VANCOMYCIN HCL 1000 MG VIAL ONE (19:41)
[2017-11-24] MEDS ORDERED: PERC5TAB12 PO (20:04)
[2017-11-24] MEDS ORDERED: XARE10TA PO (20:05)
[2017-11-24] MEDS ORDERED: oxyCODONE/ACETAMINOPHEN 5 MG/325 MG TAB PO PRN (20:15)
[2017-11-24] MEDS ORDERED: Post-op Orders (for Pharmacy) XX ONE (20:15)
[2017-11-24] MEDS ORDERED: ZOLPIDEM TARTRATE 5 MG TAB PO PRN (20:15)
[2017-11-24] MEDS ORDERED: PROMETHAZINE HCL 25 MG TAB PO PRN (20:15)
[2017-11-24] MEDS: DOCUSATE SODIUM 50 MG/SENNA 8.6 MG TAB PO SCH (21:00)
[2017-11-24] MEDS ORDERED: DOCUSATE SODIUM 50 MG/SENNA 8.6 MG TAB PO SCH (21:00)
--- NOTE | 2017-11-24 21:24 | PD.OP ---
cc: Carlos Weinstein Jr., MD Operative Report Date of Surgery: Nov 24, 2017 Preoperative Diagnosis: Left displaced unstable intertrochanteric femur fracture Postoperative Diagnosis: Same Procedure: Left hip intramedullary neha fixation Anesthesia: Gen. Surgeon: Carlos Weinstein Laboratory Development Technician(s): Hospital staff Resident Surgeon: None Operation and Findings: Implants used: 340mm x 11mm Synthes TFNA troch nail Plan of activity: Patient was seen and evaluated preoperatively. The patient has significant hip pain from proximal femur fracture. The risk and benefits of surgery were discussed in depth with the patient to include bleeding, infection, nonunion, malunion, need for hip replacement, painful hardware, as well as medical competitions including blood clots, stroke, heart attack, and . Informed consent was obtained. Operative site was marked. Patient was brought to the operating room and placed on fracture table. IV sedation was administered by anesthesiologist. Timeout procedure was performed. Hip and leg were prepped with alcohol followed by Hibiclens and draped in the usual sterile fashion. IV antibiotics were given prior to incision. Procedure began with reduction of fracture. Traction was applied. The leg was manipulated to achieve reduction. Excellent reduction was achieved. Fluoroscopy was used to confirm reduction. A three inch incision was made proximal to the trochanter. Subcutaneous tissue was dissected bluntly. Guidepin was placed at the tip of the trochanter and advanced into the femoral canal. There was significant periTrochanteric comminution. An Additional incision was made to allow utilization of a bone hook to aid in the reduction at the level of the lesser trochanter. Fluoroscopy confirmed appropriate guidepin placement. A opening reamer was placed over the guidepin. A long ball tipped guide pin was now placed down the femoral canal into the center of the distal femur. The nail length was now measured. Fluoroscopy confirmed appropriate guidepin placement. Flexible reamers were now passed over the guidepin to ream the intramedullary canal. The Synthes TFNA nail was attached to the insertion handle. Nail was now placed over the guidepin into the femoral canal. A second anti-rotational guidepin was placed at an offset angle into the femoral head. Fluoroscopy confirmed appropriate nail placement. A second incision was made over the lateral thigh. Cannulas were placed through the insertion handle down to the femur. Guidepin was now placed through the femoral nail into the center of the femoral head. Fluoroscopy confirmed appropriate guidepin placement. Screw length was measured. Cannulated drill was placed over the guidepin. Appropriate length lag screw was now placed. Traction was released and compression was applied. The set screw was now tightened in dynamic mode. Next, using perfect [place] technique, one distal interlocking screws was placed. Screw holes were predrilled and screw lengths were measured. Final fluoroscopy revealed well aligned fracture with well-placed hardware. Incision was closed with 3-0 Vicryl and abelardo. Sterile dressings were applied. Patient was awakened and transferred to recovery room. POSTP-OP PLAN OF ACTIVITY Antibiotics: Ancef, vancomycin Antiocoagulation: Lovenox while hospitalized (xeralto at discharge) Weight bearing status: NWB Dressing: Change daily POD2 Dispo: expected discharge 2-3 day SNF. Carlos Weinstein Jr., MD Nov 24, 2017 21:24
[2017-11-24] MEDS ORDERED: *morphine SULFATE 4 MG/ML PERIprocedure ONLY ONE ×2 (21:58→22:23)
[2017-11-24] MEDS ORDERED: DO NOT ADM ANY ANTICOAGULANT DRUGS PRN (22:15)
[2017-11-24] MEDS: SODIUM CHLORIDE 0.9% FLUSH 10 ML FLUSH IV FLUSH SCH (22:30)
--- NOTE | 2017-11-24 22:49 | RADRPT ---
EXAM DATE/TIME: 11/24/2017 20:44 [facility] COMPARISON: No previous studies available for comparison. INDICATIONS : Left hip troch nail. MEDICAL HISTORY : Smoker SURGICAL HISTORY : None. ENCOUNTER: Initial ACUITY: 1 day PAIN SCORE: Non-responsive. LOCATION: Left hip FINDINGS: 5 digital images are submitted. These reveal pinning of a left hip fracture with satisfactory reducti on fragments. Long diameter right component is secured distally with at least one screw. CONCLUSION: Satisfactory operative appearance. Bryan Dolan MD on November 24, 2017 at 22:47 Board Certified Radiologist. This report was verified electronically.
[2017-11-25] VITALS (13 sets, daily range): BP systolic 69–102; BP diastolic 52–67; PULSE 108–121; RESP 14–18; TEMP 96.8–98.3; O2SAT 99–100
[2017-11-25 05:27] LABS: AUTOMATED NEUTROPHIL # 11.3 TH/MM3 (1.8-7.7); HEMATOCRIT 24.9 % (35.0-46.0); HEMOGLOBIN 8.5 GM/DL (11.6-15.3); LYMPHOCYTE # 0.2 TH/MM3 (1.0-4.8); MEAN CELL VOLUME 104.3 FL (80.0-100.0); MEAN CORPUSCULAR HEMOGLOBIN 35.6 PG (27.0-34.0); MEAN CORPUSCULAR HGB CONC 34.2 % (32.0-36.0); MEAN PLATELET VOLUME 7.7 FL (7.0-11.0); MONO % 7.3 % (0.0-8.0); MONOCYTE # 0.9 TH/MM3 (0-0.9); NEUT % 90.7 % (16.0-70.0); PLATELET COUNT 209 TH/MM3 (150-450); RED BLOOD COUNT 2.38 MIL/MM3 (4.00-5.30); RED CELL DISTRIBUTION WIDTH 13.9 % (11.6-17.2); WHITE BLOOD COUNT 12.5 TH/MM3 (4.0-11.0)
[2017-11-25 05:48] LABS: ALBUMIN 2.7 GM/DL (3.4-5.0); ALKALINE PHOSPHATASE 55 U/L (45-117); ALT (GPT) 22 U/L (10-53); AST (GOT) 20 U/L (15-37); BICARBONATE 25.3 MEQ/L (21.0-32.0); BLOOD UREA NITROGEN 13 MG/DL (7-18); CALCIUM 7.7 MG/DL (8.5-10.1); CHLORIDE 102 MEQ/L (98-107); CREATININE 0.62 MG/DL (0.50-1.00); GLOMERULAR FILTRATION RATE 92 ML/MIN (>89); GLUCOSE,RANDOM 146 MG/DL (74-106); SODIUM (NA) 135 MEQ/L (136-145); TOTAL BILIRUBIN ADULT 0.6 MG/DL (0.2-1.0); TOTAL PROTEIN 5.3 GM/DL (6.4-8.2)
[2017-11-25] MEDS: ENOXAPARIN SODIUM 30 MG/0.3 ML SYRINGE SQ SCH ×2 (09:15→21:22)
[2017-11-25] MEDS: SODIUM CHLORIDE 0.9% FLUSH 10 ML FLUSH IV FLUSH SCH ×2 (09:15→21:22)
[2017-11-25] MEDS: DOCUSATE SODIUM 50 MG/SENNA 8.6 MG TAB PO SCH ×2 (09:16→21:22)
[2017-11-25] MEDS: oxyCODONE/ACETAMINOPHEN 5 MG/325 MG TAB PO PRN ×3 (09:25→21:25)
--- NOTE | 2017-11-25 11:36 | HHI.PR ---
Subjective Remarks Follow-up for hip fracture Patient has no complaints. States she is doing well. Pain control. Patient found sitting in chair. Per nurse patient is having good urine output. Objective Vitals Vital Signs Date Time Temp Pulse Resp B/P (MAP) Pulse Ox O2 Delivery O2 Flow Rate FiO2 11/25/17 11:26 72/54 (60) 11/25/17 08:00 97.6 109 14 102/61 (75) 100 11/25/17 04:00 98.2 108 18 96/67 (77) 100 11/25/17 00:00 98.2 108 18 92/61 (71) 99 11/24/17 23:07 98.7 109 22 99/56 (70) 97 Nasal Cannula 2 11/24/17 23:00 106 24 99/55 (70) 94 Nasal Cannula 2 11/24/17 22:45 104 14 100/66 (77) 95 Nasal Cannula 2 11/24/17 22:30 106 12 106/62 (77) 97 Nasal Cannula 2 11/24/17 22:15 107 14 105/63 (77) 97 Nasal Cannula 2 11/24/17 22:00 111 26 121/64 (83) 100 Nasal Cannula 2 11/24/17 21:45 98.6 109 22 130/58 (82) 99 Simple Mask 6 11/24/17 17:54 98 Nasal Cannula 2 11/24/17 17:54 99.5 109 18 105/65 (78) 99 11/24/17 16:00 100.9 109 16 106/66 (79) 98 11/24/17 13:00 100 11/24/17 11:54 100 16 104/63 (77) 100 Nasal Cannula 2.00 I/O 11/24/17 11/24/17 11/24/17 11/25/17 11/25/17 11/25/17 07:00 15:00 23:00 07:00 15:00 23:00 Intake Total 1800 ml 929 ml Output Total 590 ml 325 ml Balance 1210 ml 604 ml Intake Oral 0 ml 240 ml IV Total 689 ml Other 1800 ml Output Urine Total 390 ml 325 ml Estimated Blood Loss 100 ml Other 100 ml # Bowel Movements 0 Result Diagram: 11/25/1742711/25/17427 Objective Remarks GENERAL: in NAD CARDIOVASCULAR: Regular rate and rhythm without murmurs, gallops, or rubs. RESPIRATORY: Breath sounds equal bilaterally. No accessory muscle use. GASTROINTESTINAL: Abdomen soft, non-tender, nondistended. Medications and IVs Current Medications Sodium Chloride (NS Flush) 2 ml UNSCH PRN IVF FLUSH AFTER USING IV ACCESS Last administered on 11/24/17 11:31; Start 11/24/17 at 10:15; Stop 11/24/17 at 21 :55; Status DC Ceftriaxone Sodium 1000 mg/ Sodium Chloride 100 ml @ 200 mls/hr ONCE ONCE IV Last administered on 11/24/17 11:31; Start 11/24/17 at 11:15; Stop 11/24/17 at 11:44; Status DC Sodium Chloride (NS Flush) 2 ml UNSCH PRN IV FLUSH FLUSH AFTER USING IV ACCESS ; Start 11/24/17 at 12:00; Stop 11/24/17 at 20:57; Status DC Ondansetron HCl (Zofran Inj) 4 mg Q6H PRN IVP NAUSEA OR VOMITING; Start at 12:00 Acetaminophen (Tylenol) 650 mg Q6H PRN PO PAIN SCALE 1 TO 2; Start 11/24/17 at 12:00; Stop 11/24/17 at 21:00; Status DC Acetaminophen/ Hydrocodone Bitart ([place] 5-325 Mg) 1 tab Q4H PRN PO PAIN SCALE 3 TO 5; Start 11/24/17 at 12:00; Stop 11/24/17 at 20:59; Status DC Acetaminophen/ Hydrocodone Bitart ([place] 7.5-325 Mg) 1 tab Q4H PRN PO PAIN SCALE 6 TO 10; Start 11/24/17 at 12:00; Stop 11/24/17 at 20:59; Status DC Morphine Sulfate (Morphine Inj) 2 mg Q3H PRN IV PUSH BREAKTHROUGH PAIN; Start 11/24/17 at 12:00 Naloxone HCl (Narcan Inj) 0.4 mg UNSCH PRN IV PUSH SEE LABEL COMMENTS; Start 11/24/17 at 12:00 Senna/Docusate Sodium (Audrey-Colace) 1 tab BID PO ; Start 11/24/17 at 21:00; Stop 11/24/17 at 21:00; Status DC Magnesium Hydroxide (Milk Of Magnesia Liq) 30 ml Q12H PRN PO Mild constipation ; Start 11/24/17 at 12:00; Stop 11/24/17 at 20:58; Status DC Sennosides (Senokot) 17.2 mg Q12H PRN PO Moderate constipation; Start at 12:00; Stop 11/24/17 at 20:58; Status DC Bisacodyl (Dulcolax Supp) 10 mg DAILY PRN RECTAL SEVERE CONSITIPATION; Start 11/24/17 at 12:00; Stop 11/24/17 at 20:58; Status DC Lactulose (Lactulose Liq) 30 ml DAILY PRN PO SEVERE CONSITIPATION; Start 11/24 at 12:00; Stop 11/24/17 at 20:58; Status DC Sodium Chloride 1,000 ml @ 84 mls/hr [id number] IV Last administered on 22:30; Start 11/24/17 at 13:30 Acetaminophen 100 ml @ As Directed STK-MED ONCE IV ; Start 11/24/17 at 18:56; Stop 11/24/17 at 18:57; Status DC Cefazolin Sodium (Ancef Inj) 1,000 mg STK-MED ONCE .ROUTE ; Start 11/24/17 at 19:41; Stop 11/24/17 at 19:42; Status DC Vancomycin HCl (Vancomycin Inj) 1,000 mg STK-MED ONCE .ROUTE ; Start 11/24/17 at 19:41; Stop 11/24/17 at 19:42; Status DC Sodium Chloride (NS Flush) 2 ml UNSCH PRN IV FLUSH FLUSH AFTER USING IV ACCESS ; Start 11/24/17 at 20:15 Sodium Chloride (NS Flush) 2 ml BID IV FLUSH Last administered on 11/25/17 09 :15; Start 11/24/17 at 21:00 Cefazolin Sodium 1000 mg/Sodium Chloride 100 ml @ 200 mls/hr Q6H IV Last administered on 11/25/17 09:15; Start 11/25/17 at 02:00; Stop 11/25/17 at 14 :29 Miscellaneous Information (Post-op Orders (for Pharmacy)) STAT ONCE XX ; Start 11/24/17 at 20:15; Stop 11/24/17 at 20:56; Status DC Enoxaparin Sodium (Lovenox Inj) 30 mg Q12H SQ Last administered on 11/25/17 09:15; Start 11/25/17 at 10:00 Oxycodone/ Acetaminophen (Percocet 5-325 Mg) 1 tab Q4H PRN PO PAIN LESS THAN 5 ON SCALE Last administered on 11/25/17 09:25; Start 11/24/17 at 20:15 Oxycodone/ Acetaminophen (Percocet 5-325 Mg) 2 tab Q4H PRN PO PAIN SCALE 5 TO 10; Start 11/24/17 at 20:15 Promethazine HCl (Phenergan) 25 mg Q4H PRN PO NAUSEA OR VOMITING; Start at 20:15 Multivitamins/ Minerals Therapeutic (Theragran M Tab) 1 tab BID PO ; Start at 21:00; Stop 01/24/18 at 20:59 Zolpidem Tartrate (Ambien) 5 mg HS PRN PO SLEEP; Start 11/24/17 at 20:15 Senna/Docusate Sodium (Audrey-Colace) 1 tab BID PO Last administered on 09:16; Start 11/24/17 at 21:00 Magnesium Hydroxide (Milk Of Magnesia Liq) 30 ml Q12H PRN PO Mild constipation ; Start 11/24/17 at 20:15 Sennosides (Senokot) 17.2 mg Q12H PRN PO Moderate constipation; Start at 20:15 Bisacodyl (Dulcolax Supp) 10 mg DAILY PRN RECTAL SEVERE CONSITIPATION; Start 11/24/17 at 20:15 Lactulose (Lactulose Liq) 30 ml DAILY PRN PO SEVERE CONSITIPATION; Start 11/24 at 20:15 Fentanyl Citrate (fentaNYL INJ) 100 mcg STK-MED ONCE .ROUTE ; Start 11/24/17 at 21:52; Stop 11/24/17 at 21:53; Status DC Morphine Sulfate (*morphine INJ PERIprocedure ONLY) 4 mg STK-MED ONCE .ROUTE Last administered on 11/24/17 21:58; Start 11/24/17 at 21:58; Stop 11/24/17 at 21:59; Status DC Miscellaneous Information ALL NURSING DEPARTME... UNSCH PRN .XX SEE LABEL COMMENTS; Start 11/24/17 at 22:15; Stop 11/25/17 at 22:14 Morphine Sulfate (*morphine INJ PERIprocedure ONLY) 4 mg STK-MED ONCE .ROUTE Last administered on 11/24/17t 22:23; Start 11/24/17 at 22:23; Stop 11/24/17 at 22:24; Status DC A/P Assessment and Plan This is an 82-year-old female who presented with a mechanical fall after slipping over water Displaced fracture through trochanter region of the left femur -s/p left hip intramedullary neha fixation on 11/24 -management per Ortho Hyperlipidemia -Continue home medication. Decreased urine output -May be secondary to urinary retention versus decreased oral intake. Discussed case with nurse and asked to do a bladder scan. Will give 500 cc normal saline bolus. Asymptomatic bacteriuria -No symptoms of UTI. Pending urine cultures. DVT prophylaxis -On Lovenox 30 mg twice a day Shwetha Cheatham MD Nov 25, 2017 11:36
[2017-11-25] MEDS ORDERED: SODIUM CHLORID 0.9% 500 ML INJ 500 ML IV ONE (11:45)
[2017-11-25] MEDS: SODIUM CHLOR 0.9% 1000 ML INJ 1,000 ML IV SCH (13:20)
--- NOTE | 2017-11-25 14:11 | EKG ---
Date Performed: 11/24/2017 Time Performed: 11:34:29 PTAGE: 82 years EKG: SINUS TACHYCARDIA POSSIBLE RIGHT ATRIAL ENLARGEMENT POSSIBLE LEFT ATRIAL ENLARGEMENT LEFT A NTERIOR FASCICULAR BLOCK POSSIBLE LEFT VENTRICULAR HYPERTROPHY ABNORMAL ECG NO PREVIOUS TRACING DOCTOR: Josh Vidal Interpretating Date/Time 11/25/2017 14:10:01
--- NOTE | 2017-11-25 15:03 | PD.ORT.PN ---
Subjective Distance Walked no new ortho issues. stable. doing well. Objective Vitals Vital Signs Date Time Temp Pulse Resp B/P (MAP) Pulse Ox O2 Delivery O2 Flow Rate FiO2 11/25/17 12:43 100/60 (73) 11/25/17 12:25 84/54 (64) 11/25/17 12:00 96.8 121 15 69/52 (58) 100 11/25/17 11:50 80/54 (63) 11/25/17 11:35 88/58 (68) 11/25/17 11:26 72/54 (60) 11/25/17 10:25 16 11/25/17 08:00 97.6 109 14 102/61 (75) 100 11/25/17 04:00 98.2 108 18 96/67 (77) 100 11/25/17 00:00 98.2 108 18 92/61 (71) 99 11/24/17 23:07 98.7 109 22 99/56 (70) 97 Nasal Cannula 2 11/24/17 23:00 106 24 99/55 (70) 94 Nasal Cannula 2 11/24/17 22:45 104 14 100/66 (77) 95 Nasal Cannula 2 11/24/17 22:30 106 12 106/62 (77) 97 Nasal Cannula 2 11/24/17 22:15 107 14 105/63 (77) 97 Nasal Cannula 2 11/24/17 22:00 111 26 121/64 (83) 100 Nasal Cannula 2 11/24/17 21:45 98.6 109 22 130/58 (82) 99 Simple Mask 6 11/24/17 17:54 98 Nasal Cannula 2 11/24/17 17:54 99.5 109 18 105/65 (78) 99 11/24/17 16:00 100.9 109 16 106/66 (79) 98 I/O 11/24/17 11/24/17 11/24/17 11/25/17 11/25/17 11/25/17 07:00 15:00 23:00 07:00 15:00 23:00 Intake Total 1800 ml 929 ml 100 ml Output Total 590 ml 325 ml Balance 1210 ml 604 ml 100 ml Intake Oral 0 ml 240 ml IV Total 689 ml 100 ml Other 1800 ml Output Urine Total 390 ml 325 ml Estimated Blood Loss 100 ml Other 100 ml # Bowel Movements 0 Result Diagram: 12/29/17 0428 11/25/17 0428 Objective Remarks LLE: grossly nvi. dressing CDI, SILT distally Assessment & Plan Assessment and Plan POD 1- left hip IMN doing well. pain controlled. Antibiotics: Ancef, vancomycin Antiocoagulation: Lovenox while hospitalized (xeralto at discharge) Weight bearing status: NWB Dressing: Change daily POD2 Dispo: expected discharge 2-3 day SNF. rx on chart Carlos Weinstein Jr., MD Nov 25, 2017 15:03
[2017-11-25] MEDS: MULTIVITAMINS/MINERALS THERAPEUTIC TAB PO SCH (21:22)
[2017-11-26] VITALS (14 sets, daily range): BP systolic 105–152; BP diastolic 58–88; PULSE 95–116; RESP 17–19; TEMP 95.7–100.6; O2SAT 95–100
[2017-11-26] MEDS: SODIUM CHLOR 0.9% 1000 ML INJ 1,000 ML IV SCH ×2 (01:15→08:54)
[2017-11-26] MEDS: oxyCODONE/ACETAMINOPHEN 5 MG/325 MG TAB PO PRN ×4 (06:43→23:27)
--- NOTE | 2017-11-26 08:38 | PD.ORT.PN ---
Subjective Post Op Day #: 2 Subjective Remarks pain slowly improving Objective Vitals Vital Signs Date Time Temp Pulse Resp B/P (MAP) Pulse Ox O2 Delivery O2 Flow Rate FiO2 11/26/17 07:42 98.4 111 19 119/71 (87) 99 11/26/17 03:57 99.4 110 18 105/58 (74) 99 11/26/17 00:00 98.6 116 18 111/61 (78) 95 11/25/17 20:00 98.3 120 18 100/58 (72) 99 11/25/17 16:14 100 Nasal Cannula 2.00 11/25/17 16:00 97.0 109 16 101/62 (75) 100 11/25/17 12:43 100/60 (73) 11/25/17 12:25 84/54 (64) 11/25/17 12:00 96.8 121 15 69/52 (58) 100 11/25/17 11:50 80/54 (63) 11/25/17 11:35 88/58 (68) 11/25/17 11:26 72/54 (60) 11/25/17 10:25 16 I/O 11/25/17 11/25/17 11/25/17 11/26/17 11/26/17 11/26/17 07:00 15:00 23:00 07:00 15:00 23:00 Intake Total 929 ml 100 ml 720 ml 2154 ml Output Total 325 ml 550 ml 300 ml Balance 604 ml 100 ml 170 ml 1854 ml Intake Oral 240 ml 720 ml 242 ml IV Total 689 ml 100 ml 1912 ml Output Urine Total 325 ml 550 ml 300 ml # Bowel Movements 0 0 0 Result Diagram: 11/25/1742711/25/17427 Objective Remarks LLE: grossly nvi. dressing CDI, SILT distally, neg homans Assessment & Plan Ortho Post Op Day #: 2 Problem List: Assessment and Plan POD 2- left hip IMN doing well. pain controlled. Antibiotics: Ancef, vancomycin Antiocoagulation: Lovenox while hospitalized (xeralto at discharge) Weight bearing status: NWB Dressing: Change daily POD2 Dispo: expected discharge to SNF - possible Tuesday. rx on chart Bob Shaver Nov 26, 2017 08:38
[2017-11-26] MEDS: MULTIVITAMINS/MINERALS THERAPEUTIC TAB PO SCH ×2 (08:52→21:04)
[2017-11-26] MEDS: SODIUM CHLORIDE 0.9% FLUSH 10 ML FLUSH IV FLUSH SCH ×2 (08:52→21:05)
[2017-11-26] MEDS: DOCUSATE SODIUM 50 MG/SENNA 8.6 MG TAB PO SCH ×2 (08:52→21:04)
[2017-11-26] MEDS: ENOXAPARIN SODIUM 30 MG/0.3 ML SYRINGE SQ SCH ×2 (08:54→21:05)
[2017-11-26 10:00] LABS: MEAN CELL VOLUME 104.2 FL (80.0-100.0); MEAN CORPUSCULAR HEMOGLOBIN 35.3 PG (27.0-34.0); MEAN CORPUSCULAR HGB CONC 33.9 % (32.0-36.0); MEAN PLATELET VOLUME 7.5 FL (7.0-11.0); PLATELET COUNT 172 TH/MM3 (150-450); RED BLOOD COUNT 1.83 MIL/MM3 (4.00-5.30); RED CELL DISTRIBUTION WIDTH 13.3 % (11.6-17.2); WHITE BLOOD COUNT 8.7 TH/MM3 (4.0-11.0)
[2017-11-26 10:06] LABS: HEMOGLOBIN 6.4 GM/DL (11.6-15.3)
[2017-11-26] MEDS ORDERED: SODIUM CHLOR 0.9% 250 ML INJ 250 ML IV ONE (10:30)
--- NOTE | 2017-11-26 11:45 | HHI.PR ---
Subjective Remarks Follow-up for hip surgery and anemia Denied any episodes of bleeding. Patient stated pain is better controlled. Her neighbors at the bedside during the interview. Patient does admit to feeling fatigue. Deny any chest pain, shortness of breathing, palpitation, lightheadedness or dizziness. She has no other complaints. Objective Vitals Vital Signs Date Time Temp Pulse Resp B/P (MAP) Pulse Ox O2 Delivery O2 Flow Rate FiO2 11/26/17 11:40 99.2 116 19 121/72 (88) 100 11/26/17 07:42 98.4 111 19 119/71 (87) 99 11/26/17 03:57 99.4 110 18 105/58 (74) 99 11/26/17 00:00 98.6 116 18 111/61 (78) 95 11/25/17 20:00 98.3 120 18 100/58 (72) 99 11/25/17 16:14 100 Nasal Cannula 2.00 11/25/17 16:00 97.0 109 16 101/62 (75) 100 11/25/17 12:43 100/60 (73) 11/25/17 12:25 84/54 (64) 11/25/17 12:00 96.8 121 15 69/52 (58) 100 11/25/17 11:50 80/54 (63) I/O 11/25/17 11/25/17 11/25/17 11/26/17 11/26/17 11/26/17 07:00 15:00 23:00 07:00 15:00 23:00 Intake Total 929 ml 100 ml 720 ml 2154 ml Output Total 325 ml 550 ml 300 ml Balance 604 ml 100 ml 170 ml 1854 ml Intake Oral 240 ml 720 ml 242 ml IV Total 689 ml 100 ml 1912 ml Output Urine Total 325 ml 550 ml 300 ml # Bowel Movements 0 0 0 Result Diagram: 11/26/17 0943 11/25/17 0428 Objective Remarks GENERAL: in NAD CARDIOVASCULAR: Regular rate and rhythm without murmurs, gallops, or rubs. RESPIRATORY: Breath sounds equal bilaterally. No accessory muscle use. GASTROINTESTINAL: Abdomen soft, non-tender, nondistended. Medications and IVs Current Medications Sodium Chloride (NS Flush) 2 ml UNSCH PRN IVF FLUSH AFTER USING IV ACCESS Last administered on 11/24/17t 11:31; Start 11/24/17 at 10:15; Stop 11/24/17 at 21 :55; Status DC Ceftriaxone Sodium 1000 mg/ Sodium Chloride 100 ml @ 200 mls/hr ONCE ONCE IV Last administered on 11/24/17t 11:31; Start 11/24/17 at 11:15; Stop 11/24/17 at 11:44; Status DC Sodium Chloride (NS Flush) 2 ml UNSCH PRN IV FLUSH FLUSH AFTER USING IV ACCESS ; Start 11/24/17 at 12:00; Stop 11/24/17 at 20:57; Status DC Ondansetron HCl (Zofran Inj) 4 mg Q6H PRN IVP NAUSEA OR VOMITING; Start at 12:00 Acetaminophen (Tylenol) 650 mg Q6H PRN PO PAIN SCALE 1 TO 2; Start 11/24/17 at 12:00; Stop 11/24/17 at 21:00; Status DC Acetaminophen/ Hydrocodone Bitart (Freedom 5-325 Mg) 1 tab Q4H PRN PO PAIN SCALE 3 TO 5; Start 11/24/17 at 12:00; Stop 11/24/17 at 20:59; Status DC Acetaminophen/ Hydrocodone Bitart (Freedom 7.5-325 Mg) 1 tab Q4H PRN PO PAIN SCALE 6 TO 10; Start 11/24/17 at 12:00; Stop 11/24/17 at 20:59; Status DC Morphine Sulfate (Morphine Inj) 2 mg Q3H PRN IV PUSH BREAKTHROUGH PAIN; Start 11/24/17 at 12:00 Naloxone HCl (Narcan Inj) 0.4 mg UNSCH PRN IV PUSH SEE LABEL COMMENTS; Start 11/24/17 at 12:00 Senna/Docusate Sodium (Audrey-Colace) 1 tab BID PO ; Start 11/24/17 at 21:00; Stop 11/24/17 at 21:00; Status DC Magnesium Hydroxide (Milk Of Magnesia Liq) 30 ml Q12H PRN PO Mild constipation ; Start 11/24/17 at 12:00; Stop 11/24/17 at 20:58; Status DC Sennosides (Senokot) 17.2 mg Q12H PRN PO Moderate constipation; Start at 12:00; Stop 11/24/17 at 20:58; Status DC Bisacodyl (Dulcolax Supp) 10 mg DAILY PRN RECTAL SEVERE CONSITIPATION; Start 11/24/17 at 12:00; Stop 11/24/17 at 20:58; Status DC Lactulose (Lactulose Liq) 30 ml DAILY PRN PO SEVERE CONSITIPATION; Start 11/24 at 12:00; Stop 11/24/17 at 20:58; Status DC Sodium Chloride 1,000 ml @ 84 mls/hr [id number] IV Last administered on 08:54; Start 11/24/17 at 13:30 Acetaminophen 100 ml @ As Directed STK-MED ONCE IV ; Start 11/24/17 at 18:56; Stop 11/24/17 at 18:57; Status DC Cefazolin Sodium (Ancef Inj) 1,000 mg STK-MED ONCE .ROUTE ; Start 11/24/17 at 19:41; Stop 11/24/17 at 19:42; Status DC Vancomycin HCl (Vancomycin Inj) 1,000 mg STK-MED ONCE .ROUTE ; Start 11/24/17 at 19:41; Stop 11/24/17 at 19:42; Status DC Sodium Chloride (NS Flush) 2 ml UNSCH PRN IV FLUSH FLUSH AFTER USING IV ACCESS ; Start 11/24/17 at 20:15 Sodium Chloride (NS Flush) 2 ml BID IV FLUSH Last administered on 11/26/17 08 :52; Start 11/24/17 at 21:00 Cefazolin Sodium 1000 mg/Sodium Chloride 100 ml @ 200 mls/hr Q6H IV Last administered on 11/25/17 14:18; Start 11/25/17 at 02:00; Stop 11/25/17 at 14 :29; Status DC Miscellaneous Information (Post-op Orders (for Pharmacy)) STAT ONCE XX ; Start 11/24/17 at 20:15; Stop 11/24/17 at 20:56; Status DC Enoxaparin Sodium (Lovenox Inj) 30 mg Q12H SQ Last administered on 11/26/17 08:54; Start 11/25/17 at 10:00 Oxycodone/ Acetaminophen (Percocet 5-325 Mg) 1 tab Q4H PRN PO PAIN LESS THAN 5 ON SCALE Last administered on 11/26/17 11:09; Start 11/24/17 at 20:15 Oxycodone/ Acetaminophen (Percocet 5-325 Mg) 2 tab Q4H PRN PO PAIN SCALE 5 TO 10; Start 11/24/17 at 20:15 Promethazine HCl (Phenergan) 25 mg Q4H PRN PO NAUSEA OR VOMITING; Start at 20:15 Multivitamins/ Minerals Therapeutic (Theragran M Tab) 1 tab BID PO Last administered on 11/26/17 08:52; Start 11/25/17 at 21:00; Stop 01/24/18 at 20: 59 Zolpidem Tartrate (Ambien) 5 mg HS PRN PO SLEEP; Start 11/24/17 at 20:15 Senna/Docusate Sodium (Audrey-Colace) 1 tab BID PO Last administered on 08:52; Start 11/24/17 at 21:00 Magnesium Hydroxide (Milk Of Magnesia Liq) 30 ml Q12H PRN PO Mild constipation ; Start 11/24/17 at 20:15 Sennosides (Senokot) 17.2 mg Q12H PRN PO Moderate constipation; Start at 20:15 Bisacodyl (Dulcolax Supp) 10 mg DAILY PRN RECTAL SEVERE CONSITIPATION; Start 11/24/17 at 20:15 Lactulose (Lactulose Liq) 30 ml DAILY PRN PO SEVERE CONSITIPATION; Start 11/24 at 20:15 Fentanyl Citrate (fentaNYL INJ) 100 mcg STK-MED ONCE .ROUTE ; Start 11/24/17 at 21:52; Stop 11/24/17 at 21:53; Status DC Morphine Sulfate (*morphine INJ PERIprocedure ONLY) 4 mg STK-MED ONCE .ROUTE Last administered on 11/24/17 21:58; Start 11/24/17 at 21:58; Stop 11/24/17 at 21:59; Status DC Miscellaneous Information ALL NURSING DEPARTME... UNSCH PRN .XX SEE LABEL COMMENTS; Start 11/24/17 at 22:15; Stop 11/25/17 at 22:14; Status DC Morphine Sulfate (*morphine INJ PERIprocedure ONLY) 4 mg STK-MED ONCE .ROUTE Last administered on 11/24/17t 22:23; Start 11/24/17 at 22:23; Stop 11/24/17 at 22:24; Status DC Sodium Chloride 500 ml @ 500 mls/hr BOLUS ONCE IV Last administered on 12:35; Start 11/25/17 at 11:45; Stop 11/25/17 at 12:44; Status DC Sodium Chloride 250 ml @ 15 mls/hr ONCE ONCE IV ; Start 11/26/17 at 10:30; Stop 11/27/17 at 03:09 A/P Assessment and Plan This is an 82-year-old female who presented with a mechanical fall after slipping over water Displaced fracture through trochanter region of the left femur -s/p left hip intramedullary neha fixation on 11/24 -management per Ortho Anemia -Secondary to blood loss from surgery. -Hemoglobin today 6.4. -Will transfuse with 2 units packed red blood cells. Follow with posttransfusion H&H. -Patient educated on the risks, benefits, and side effects of blood transfusion and she is in agreement with transfusion. Hyperlipidemia -Continue home medication. Decreased urine output -Resolved. Most likely secondary to decreased oral intake. Asymptomatic bacteriuria -No symptoms of UTI. Culture so far negative. DVT prophylaxis -On Lovenox 30 mg twice a day Discharge Planning If patient continues to well patient can be discharged tomorrow to a SNF. Shwetha Cheatahm MD Nov 26, 2017 11:45
[2017-11-27] MEDS: SODIUM CHLOR 0.9% 1000 ML INJ 1,000 ML IV SCH ×2 (01:05→12:17)
[2017-11-27 01:07] LABS: HEMATOCRIT 26.4 % (35.0-46.0); HEMOGLOBIN 9.5 GM/DL (11.6-15.3)
[2017-11-27 05:09] VITALS: BP 115/62; PULSE 86; RESP 17; TEMP 98.4; O2SAT 97
--- NOTE | 2017-11-27 06:44 | HHI.PR ---
Subjective Remarks Patient seen and examined today for hip surgery and anemia. Fever overnight noted, Tmax 100.6. She feels well, wants to be at SNF by 1pm so she can watch football. She denies CP or SOB. [place] lightheaded when she got up from bed to chair. Some hip achiness. Objective Vital Signs Date Time Temp Pulse Resp B/P (MAP) Pulse Ox O2 Delivery O2 Flow Rate FiO2 11/27/17 05:09 98.4 86 17 115/62 (79) 97 11/26/17 23:50 100.6 103 18 133/88 99 11/26/17 23:40 100.6 103 17 133/82 (99) 95 11/26/17 20:42 99.8 105 18 133/74 99 11/26/17 20:24 99.3 95 18 152/80 95 11/26/17 19:35 99.3 95 18 152/80 (104) 95 11/26/17 18:06 97.5 113 18 127/70 99 11/26/17 15:55 99.6 116 18 143/80 (101) 98 11/26/17 13:40 95.7 111 17 134/68 98 11/26/17 13:11 97.9 107 17 134/70 100 11/26/17 11:40 99.2 116 19 121/72 (88) 100 11/26/17 07:42 98.4 111 19 119/71 (87) 99 I/O 11/26/17 11/26/17 11/26/17 11/27/17 11/27/17 11/27/17 07:00 15:00 23:00 07:00 15:00 23:00 Intake Total 2154 ml 1501 ml 2920 ml 770 ml Output Total 300 ml Balance 1854 ml 1501 ml 2920 ml 770 ml Intake Oral 242 ml 850 ml 480 ml 360 ml IV Total 1912 ml 649 ml Packed Cells 400 ml 400 ml Blood Product IV Normal Saline Flush 2 ml 2040 ml 10 ml Output Urine Total 300 ml # Voids 2 4 2 # Bowel Movements 0 0 0 0 Result Diagram: 11/27/17 0050 11/25/17 0428 Imaging Last Impressions Pelvis X-Ray 11/24/17 1010 Signed Impressions: Service Date/Time: October 10:51 - CONCLUSION: There is a displaced oblique fracture through the trochanteric region of the proximal left femur. Neo Goldsmith MD Femur X-Ray 11/24/17 1010 Signed Impressions: Service Date/Time: October 10:54 - CONCLUSION: Displaced fracture through the trochanteric region of the left femur. Neo Goldsmith MD Chest X-Ray 11/24/17 1010 Signed Impressions: Service Date/Time: October 11:15 - CONCLUSION: No acute disease. Neo Goldsmith MD Hip X-Ray 11/24/17 0000 Signed Impressions: Service Date/Time: October 20:44 - CONCLUSION: Satisfactory operative appearance. Bryan Dolan MD Head CT 11/24/17 0000 Signed Impressions: Service Date/Time: October 12:05 - CONCLUSION: 1. No acute intracranial hemorrhage. 2. Bilateral cortical atrophy. Neo Goldsmith MD Objective Remarks GENERAL: sitting up in chair nad SKIN: Warm and dry. HEAD: Normocephalic. EYES: No scleral icterus. No injection or drainage. NECK: Supple, trachea midline. No JVD or lymphadenopathy. CARDIOVASCULAR: Regular rate and rhythm without murmurs, gallops, or rubs. RESPIRATORY: Breath sounds equal bilaterally. No accessory muscle use. Nasal canula in place. GASTROINTESTINAL: Abdomen soft, non-tender, nondistended. MUSCULOSKELETAL: No cyanosis, or edema. No calf tenderness. A/P Problem List: (1) Anemia ICD Code: D64.9 - Anemia, unspecified (2) Hip fracture ICD Code: S72.009A - Fracture of unspecified part of neck of unspecified femur , initial encounter for closed fracture Status: Acute Assessment and Plan This is an 82-year-old female who presented with a mechanical fall after slipping over water Displaced fracture through trochanter region of the left femur -s/p left hip intramedullary neha fixation on 11/24 -management per Ortho Anemia -Secondary to blood loss from surgery. -Hemoglobin today 6.4, status post 2 units hemoglobin stable at 9.5 Hyperlipidemia -Continue home medication. Asymptomatic bacteriuria -No symptoms of UTI. Culture so far negative. DVT prophylaxis -On Lovenox 30 mg twice a day, Xarelto IDC Discharge Planning Anticipate discharged to [facility] today Problem Qualifiers (1) Hip fracture: Qualified Codes: S72.002A - Fracture of unspecified part of neck of left femur , initial encounter for closed fracture Ana Rosa Patino MD Nov 27, 2017 06:44
--- NOTE | 2017-11-27 06:46 | HHI.DCPOC ---
Discharge Care Plan Diagnosis: (1) Hip fracture (2) Anemia Goals to Promote Your Health * To prevent worsening of your condition and complications * To maintain your health at the optimal level Directions to Meet Your Goals Take your medications as prescribed Follow your dietary instruction Follow activity as directed Keep your appointments as scheduled Take your immunizations and boosters as scheduled If your symptoms worsen call your PCP, if no PCP go to Urgent Care Center or Emergency Room Smoking is Dangerous to Your Health. Avoid second hand smoke Call the 24-hour hour crisis hotline for domestic abuse at Ana Rosa Patino MD Nov 27, 2017 06:46
[2017-11-27] MEDS ORDERED: ALPRAZolam 0.25 MG TAB PO PRN (07:00)
[2017-11-27] MEDS ORDERED: oxyCODONE/ACETAMINOPHEN 5 MG/325 MG TAB PO PRN (07:00)
--- NOTE | 2017-11-27 07:18 | PD.ORT.PN ---
Subjective Subjective Remarks Patient resting comfortably. No acute events. Objective Vitals Vital Signs Date Time Temp Pulse Resp B/P (MAP) Pulse Ox O2 Delivery O2 Flow Rate FiO2 11/27/17 05:09 98.4 86 17 115/62 (79) 97 11/26/17 23:50 100.6 103 18 133/88 99 11/26/17 23:40 100.6 103 17 133/82 (99) 95 11/26/17 20:42 99.8 105 18 133/74 99 11/26/17 20:24 99.3 95 18 152/80 95 11/26/17 19:35 99.3 95 18 152/80 (104) 95 11/26/17 18:06 97.5 113 18 127/70 99 11/26/17 15:55 99.6 116 18 143/80 (101) 98 11/26/17 13:40 95.7 111 17 134/68 98 11/26/17 13:11 97.9 107 17 134/70 100 11/26/17 11:40 99.2 116 19 121/72 (88) 100 11/26/17 07:42 98.4 111 19 119/71 (87) 99 I/O 11/26/17 11/26/17 11/26/17 11/27/17 11/27/17 11/27/17 07:00 15:00 23:00 07:00 15:00 23:00 Intake Total 2154 ml 1501 ml 2920 ml 770 ml Output Total 300 ml Balance 1854 ml 1501 ml 2920 ml 770 ml Intake Oral 242 ml 850 ml 480 ml 360 ml IV Total 1912 ml 649 ml Packed Cells 400 ml 400 ml Blood Product IV Normal Saline Flush 2 ml 2040 ml 10 ml Output Urine Total 300 ml # Voids 2 4 2 # Bowel Movements 0 0 0 0 Result Diagram: 11/27/17 0050 11/25/17 0428 Objective Remarks LLE: grossly nvi. dressing CDI, SILT distally, neg homans Assessment & Plan Assessment and Plan POD 3- left hip IMN doing well. pain controlled. Antibiotics: Ancef, vancomycin Antiocoagulation: Lovenox while hospitalized (xeralto at discharge) Weight bearing status: NWB Dressing: Change daily POD2 Dispo: expected discharge to SNF - possible today. rx on chart Francie Huggins MD Nov 27, 2017 07:18
[2017-11-27] MEDS ORDERED: WALKER WHEELS/F1 MIS (07:19)
[2017-11-27 07:24] VITALS: BP 121/71; PULSE 96; RESP 16; TEMP 96.1; O2SAT 97
[2017-11-27 08:45] VITALS: O2SAT 98
[2017-11-27] MEDS ORDERED: RIVAROXABAN 10 MG TAB PO SCH (09:00)
[2017-11-27] MEDS ORDERED: PRAVASTATIN SOD 40 MG TAB PO SCH (09:00)
[2017-11-27] MEDS ORDERED: ASPIRIN 81 MG CHEW TAB CHEW SCH (09:00)
[2017-11-27] MEDS: DOCUSATE SODIUM 50 MG/SENNA 8.6 MG TAB PO SCH (10:53)
[2017-11-27] MEDS: MULTIVITAMINS/MINERALS THERAPEUTIC TAB PO SCH (10:53)
[2017-11-27] MEDS: SODIUM CHLORIDE 0.9% FLUSH 10 ML FLUSH IV FLUSH SCH (10:54)
[2017-11-27] MEDS: ENOXAPARIN SODIUM 30 MG/0.3 ML SYRINGE SQ SCH (10:54)
[2017-11-27] MEDS: oxyCODONE/ACETAMINOPHEN 5 MG/325 MG TAB PO PRN ×2 (10:55→14:40)
[2017-11-27 11:04] VITALS: BP 116/76; PULSE 109; RESP 16; TEMP 97.4; O2SAT 98
--- NOTE | 2017-11-27 11:30 | HHI.DS ---
Discharge Summary Admission Date Nov 24, 2017 at 12:24 Discharge Date: Nov 27, 2017 Admitting Diagnosis hip fracture Brief History This is a 82-year-old female past medical history of right macular degeneration , left vision loss, and hyperlipidemia who presented with a fall. Patient stated that her hospice home health aide hasn't been working so she's been using ice trays and putting water in it. She stated that she spilled the water and slipped on it and flew in landed on the ground. She is unsure how she landed. She denies hitting her head and losing any consciousness. Patient stated that she remain on the floor and then had a push herself to the den where she slept up. She later realized that she would not be able to get up so she called her neighbor who called EMS. Patient stated that she does have a life alert but has never used it and stated that she is not planning on using it. She denies any chest pain, palpitation, SOB, lightheadedness or dizziness. She stated that she has never had these problems. Patient stated that she is very independent and would like to go home after surgery. Patient complains of left hip and thigh pain. Denied any loss of sensation. all other reviewed of system reviewed and negative. CBC/BMP: 11/27/17 0050 11/25/17 0428 Significant Findings Laboratory Tests Test 11/25/17 04:28 11/26/17 09:43 11/27/17 00:50 White Blood Count 12.5 TH/MM3 (4.0-11.0) Red Blood Count 2.38 MIL/MM3 (4.00-5.30) 1.83 MIL/MM3 (4.00-5.30) Hemoglobin 8.5 GM/DL (11.6-15.3) 6.4 GM/DL (11.6-15.3) 9.5 GM/DL (11.6-15.3) Hematocrit 24.9 % (35.0-46.0) 19.0 % (35.0-46.0) 26.4 % (35.0-46.0) Mean Corpuscular Volume 104.3 FL (80.0-100.0) 104.2 FL (80.0-100.0) Mean Corpuscular Hemoglobin 35.6 PG (27.0-34.0) 35.3 PG (27.0-34.0) Neutrophils (%) (Auto) 90.7 % (16.0-70.0) Lymphocytes (%) (Auto) 2.0 % (9.0-44.0) Neutrophils # (Auto) 11.3 TH/MM3 (1.8-7.7) Lymphocytes # (Auto) 0.2 TH/MM3 (1.0-4.8) Random Glucose 146 MG/DL (74-106) Total Protein 5.3 GM/DL (6.4-8.2) Albumin 2.7 GM/DL (3.4-5.0) Calcium Level 7.7 MG/DL (8.5-10.1) Sodium Level 135 MEQ/L (136-145) Imaging Last Impressions Pelvis X-Ray 11/24/17 1010 Signed Impressions: Service Date/Time: October 10:51 - CONCLUSION: There is a displaced oblique fracture through the trochanteric region of the proximal left femur. Neo Goldsmith MD Femur X-Ray 11/24/17 1010 Signed Impressions: Service Date/Time: October 10:54 - CONCLUSION: Displaced fracture through the trochanteric region of the left femur. Neo Goldsmith MD Chest X-Ray 11/24/17 1010 Signed Impressions: Service Date/Time: October 11:15 - CONCLUSION: No acute disease. Neo Goldsmith MD Hip X-Ray 11/24/17 0000 Signed Impressions: Service Date/Time: October 20:44 - CONCLUSION: Satisfactory operative appearance. Bryan Dolan MD Head CT 11/24/17 0000 Signed Impressions: Service Date/Time: October 12:05 - CONCLUSION: 1. No acute intracranial hemorrhage. 2. Bilateral cortical atrophy. Neo Goldsmith MD PE at Discharge GENERAL: sitting up in chair nad SKIN: Warm and dry. HEAD: Normocephalic. EYES: No scleral icterus. No injection or drainage. NECK: Supple, trachea midline. No JVD or lymphadenopathy. CARDIOVASCULAR: Regular rate and rhythm without murmurs, gallops, or rubs. RESPIRATORY: Breath sounds equal bilaterally. No accessory muscle use. Nasal canula in place. GASTROINTESTINAL: Abdomen soft, non-tender, nondistended. MUSCULOSKELETAL: No cyanosis, or edema. No calf tenderness. Hospital Course Displaced fracture through trochanter region of the left femur -s/p left hip intramedullary neha fixation on 11/24 -management per Ortho Anemia -Secondary to blood loss from surgery. -Hemoglobin today 6.4, status post 2 units hemoglobin stable at 9.5 D/C to SNF Pt Condition on Discharge: Stable Discharge Disposition: Discharge to SNF Discharge Instructions DIET: Follow Instructions for: Heart Healthy Diet Activities you can perform: Weight Bearing as [place] Additional Activity Instructio: per PT reccs Follow up Referrals: Orthopedics - 1 Week PCP Follow-up - 1 Week SNF/[facility] with Ana Rosa Moncada MD Nov 27, 2017 11:30
[2017-11-27 15:48] VITALS: O2SAT 99
[2017-11-27 15:57] VITALS: BP 120/69; PULSE 95; RESP 16; TEMP 98.5; O2SAT 98
== END 2017-11-27 20:04 | DRG 482 ==
LOC: NEPE 09:58 → NEDA 12:24 → N06B 13:06
PROVIDERS: ADMIT Family Medicine; ATTEND Family Medicine
PROC: 0QS706Z Reposition Left Upper Femur with Intramedullary Internal Fixation Device, Open Approach (ICD-10-PCS; principal; 2017-11-24 19:54)
PROC: 30233N1 Transfusion of Nonautologous Red Blood Cells into Peripheral Vein, Percutaneous Approach (ICD-10-PCS; 2017-11-26)
DX: S72.142A Displaced intertrochanteric fracture of left femur, initial encounter for closed fracture (principal); D64.9 Anemia, unspecified; R82.71 Bacteriuria; E78.5 Hyperlipidemia, unspecified; H35.30 Unspecified macular degeneration; H54.62 Unqualified visual loss, left eye, normal vision right eye; W01.0XXA Fall on same level from slipping, tripping and stumbling without subsequent striking against object, initial encounter; Y92.000 Kitchen of unspecified non-institutional (private) residence as the place of occurrence of the external cause; Z72.0 Tobacco use
CPT/HCPCS: 36430; 51702; 70450; 71010; 72170; 73502; 73552; 76000; 80053; 81001; 82550; 82552; 85014; 85018; 85025; 85027; 85610; 85730; 86850; 86900; 86901; 86920; 87040; 87077; 87086; 87186; 93005; 94150; 96365; C1713; J0131; J0690; J0696; J1100; J1650; J2270; J2370; J2405; J3010; J3370; J7030; J7040; J7050; J7120; P9016